=== PATIENT | male | born 1970 | race American Indian/Alaskan Native ===

== ENCOUNTER 2017-04-03 08:10 | Emergency (ER) | payer MEDICAID, OTHER ==
[2017-04-03 08:11] VITALS: BMI 34.8
[2017-04-03 08:41] VITALS: BP 142/96; PULSE 74; RESP 18; O2SAT 99
--- NOTE | 2017-04-03 08:41 | ED PDOC ---
Arrival/HPI - General Chief Complaint: Chest Pain Time Seen by Provider: 04/03/17 08:24 Historian: Patient - History of Present Illness Narrative History of Present Illness (Text): 46yo male with history of CVA with no residual deficit, presents to ER with complaints of pressure like right sided chest pain, present since 10pm last night. Patient reports he was sitting down and watching a movie when the chest pain started; states the pain was intermittent last night but has been constant since this morning. He states the pain is non-radiating and feels as if there is an "air bubble." Patient states pain is exacerbated with deep inspiration and when he is attempting to sit up. He denies any associated sweats, dizziness , nausea, vomiting, or shortness of breath. Time/Duration: 4-6 hours Symptom Onset: Gradual Symptom Course: Unchanged Quality: Pressure, Gas Like Activities at Onset: Rest Context: Sitting Past Medical History - Provider Review Nursing Documentation Reviewed: Yes - Patient History Narrative Patient History: Stroke - Infectious Disease Hx of Infectious Diseases: None - Psychiatric Hx Substance Use: No Family/Social History - Physician Review Nursing Documentation Reviewed: Yes Family/Social History: No Known Family HX Smoking Status: Never Smoked Hx Alcohol Use: No Hx Substance Use: No Allergies/Home Meds Allergies/Adverse Reactions: Allergies nuts Allergy (Uncoded 04/03/17 08:14) COUGH Home Medications: Home Meds Medication Instructions Recorded Confirmed No Known Home Med 04/03/17 04/03/17 Review of Systems - Physician Review All systems were reviewed & negative as marked: Yes - Review of Systems Respiratory: absent: SOB Neurological: absent: Dizziness Physical Exam - Physical Exam Narrative Physical Exam (Text): Constitutional: No acute distress. Head: Normocephalic. Atraumatic. Eyes: PERRL. ENT: Moist mucous membranes. Neck: Supple. Cardiovascular: Regular rate. Chest: Reproducible right chest wall tenderness. Reproducible pain with right pectoral muscle use. Respiratory: Clear to auscultation bilaterally. GI: Soft. Nontender. Nondistended. Back: No CVA tenderness. Musculoskeletal: No tenderness or swelling of extremities. Skin: No rash. Neurologic: Alert, no focal deficit. Vital Signs Pulse Resp BP Pulse Ox 04/03/17 08:30 74 18 142/96 H 99 Temperature: Afebrile Appearance: Positive for: Well-Appearing, Non-Toxic, Comfortable Mental Status: Positive for: Alert and Oriented X 3 Medical Decision Making ED Course and Treatment: Impression: Right sided chest wall pain Plan: -- Labs -- CXR Progress notes: 04/03/17 09:15 Labs reviewed, DDimer and Troponin both negative. 04/03/17 09:22 EKG NSR Rate of 84 no STT wave changes. 04/03/17 09:29 CXR no acute disease. No pleural effusion, no PTX, no consolidation. - Lab Interpretations Lab Results: 04/03/17 08:30 04/03/17 08:30 Lab Results 04/03/17 08:30: Sodium 139, Potassium 4.3, Chloride 104, Carbon Dioxide 27, Anion Gap 13, BUN 15, Creatinine 1.0, Est GFR ( Amer) > 60, Est GFR (Non- Af Amer) > 60, Random Glucose 106, Calcium 9.4, Total Bilirubin 0.4, AST 39, ALT 47, Alkaline Phosphatase 65, Total Creatine Kinase 560 H, CK-MB (CK-2) 1.6, CK-MB (CK-2) % Cancelled, Troponin I < 0.01, Total Protein 7.4, Albumin 4.0, Globulin 3.4, Albumin/Globulin Ratio 1.2 04/03/17 08:30: D-Dimer, Quantitative < 200 04/03/17 08:30: WBC 9.4, RBC 5.13, Hgb 13.8 L, Hct 41.6 L, MCV 81.1, MCH 26.9, MCHC 33.2, RDW 14.7 H, Plt Count 162, MPV 10.7, Gran % 67.4, Lymph % (Auto) 25.7 , [place] % (Auto) 5.3, Eos % (Auto) 1.4 L, Baso % (Auto) 0.2, Gran # 6.31, Lymph # 2.4, [place] # 0.5, Eos # 0.1, Baso # 0.02 - RAD Interpretation Radiology Orders: 04/03/17 08:32 CHEST PORTABLE [RAD] Stat - Scribe Statement The provider has reviewed the documentation as recorded by the Gonzalez Rodriguez Provider Scribe Attestation: All medical record entries made by the Allieibrae were at my direction and personally dictated by me. I have reviewed the chart and agree that the record accurately reflects my personal performance of the history, physical exam, medical decision making, and the department course for this patient. I have also personally directed, reviewed, and agree with the discharge instructions and disposition. Disposition/Present on Arrival - Present on Arrival Any Indicators Present on Arrival: No History of DVT/PE: No History of Uncontrolled Diabetes: No Urinary Catheter: No History of Decub. Ulcer: No History Surgical Site Infection Following: None - Disposition Have Diagnosis and Disposition been Completed?: Yes Diagnosis: Chest pain Disposition: HOME/ ROUTINE Disposition Time: 09:24 Patient Plan: Discharge Patient Problems: Current Active Problems Problem Status Onset Chest pain Acute Condition: STABLE Discharge Instructions (ExitCare): Chest Wall Pain (ED) Referrals: [facility] [place] - Follow up with primary Forms: [employer] (B[place]ladeshi)
[2017-04-03 08:52] LABS: BASO # 0.02 K/mm3 (0.0-2.0); BASO % 0.2 % (0.0-3.0); EOS # 0.1 (0.0-0.7); EOS % 1.4 % (1.5-5.0); GRAN # 6.31 (1.4-6.5); GRAN % 67.4 % (50.0-68.0); HEMOGLOBIN 13.8 g/dL (14.0-18.0); LYMPH # 2.4 (1.2-3.4); LYMPH % 25.7 % (22.0-35.0); MEAN CELL VOLUME 81.1 fl (80.0-105.0); MEAN CORPUSCULAR HEMOGLOBIN 26.9 pg (25.0-35.0); MEAN CORPUSCULAR HGB CONC 33.2 g/dl (31.0-37.0); MEAN PLATELET VOLUME 10.7 fl (7.0-11.0); MONO # 0.5 (0.1-0.6); MONO % 5.3 % (1.0-6.0); RBC 5.13 10^6/uL (3.5-6.1); RED CELL DISTRIBUTION WIDTH 14.7 % (11.5-14.5); WHITE BLOOD COUNT 9.4 10^3/ul (4.5-11.0)
[2017-04-03 09:02] LABS: ALB/GLOB RATIO 1.2 (1.1-1.8); ALT/SGPT 47 U/L (7-56); AST/SGOT 39 U/L (17-59); BLOOD UREA NITROGEN 15 mg/dL (7-21); CALCIUM 9.4 mg/dL (8.4-10.5); GFR AFRICAN-AMERICAN > 60; GFR NON-AFRICAN AMERICAN > 60
[2017-04-03 09:11] LABS: TROPONIN I < 0.01 ng/mL
[2017-04-03 09:16] LABS: CK-MB 1.6 ng/mL (0.0-3.6)
--- NOTE | 2017-04-03 10:35 | RAD ---
HISTORY: Right-sided pleuritic chest pain COMPARISON: No prior. FINDINGS: LUNGS: No active pulmonary disease. PLEURA: No significant pleural effusion identified, no pneumothorax apparent. CARDIOVASCULAR: Normal. OSSEOUS STRUCTURES: No significant abnormalities. VISUALIZED UPPER ABDOMEN: Normal. OTHER FINDINGS: None. IMPRESSION: No active disease.
--- NOTE | 2017-04-03 15:53 | CARD ---
APPROVED REPORT EKG Measurement Heart [id number] IN [id number] [id number] <Conclusion> Normal sinus rhythm Incomplete right bundle branch block Borderline ECG
== END 2017-04-03 09:49 | disposition home or self-care (01) ==
LOC: ED 08:10
DX: R07.9 Chest pain, unspecified (principal)